=== PATIENT | male | born 1960 | race Caucasian/White ===

== ENCOUNTER 2017-08-17 10:11 | Inpatient (IN) | payer BC ==
[~2017-08-17] VITALS: Ht 175.3 cm; Wt 101.7 kg
[~2017-08-17 10:11] MED LIST: ARIXTRA SC; CIPRO HC OTIC S10 ML LEFT EAR; CITALOPRAM HBR20 MG PO; DIGOXIN125 MCG PO; Duragesic TD; EFFEXOR75 MG PO; FERROUS SULFAT325 MG PO; FOLIC ACID1 MG PO; FUROSEMIDE20 MG PO; LANTUS 10100 UNITS/ PO; LANTUS 10100 UNITS/ SC; LIPITOR40 MG PO; LISINOPRIL10 MG PO; LITE COAT ASPI325 M1 PO; LOSARTAN POTASS50 MG PO; LYRICA150 MG PO; Lipitor PO; METOPROLOL SUC100 MG PO; METOPROLOL SUCC25 MG PO; METOPROLOL SUCC50 MG PO; NAPROSYN500 MG PO; NORCO 7.5/321 TABLET PO; NOVOLOG PE100 UNITS/ SC; PRAVASTATIN SOD40 MG PO; PRILOSEC40 MG PO; PROTONIX40 MG PO; Percocet 5/325,Endoc PO; RANITIDINE HCL150 M1 PO; RANITIDINE HCL150 MG PO; SIMVASTATIN80 MG PO; SPIRONOLACTONE25 MG PO; TYLENOL EXTRA500 MG PO; celeXA PO
[2017-08-17 11:14] LABS: HEMATOCRIT 33.7 % (38.0-50.0); MCH 31.6 PG (29.0-34.0); MCHC 34.1 G/DL (30.0-36.0); MCV 92.6 FL (86-99); PLATELET COUNT 219 K/uL (156-360); RBC DIS.WIDTH-CV 13.8 % (11.8-14.6); RBC DIS.WIDTH-SD 46.5 % (39-53); WHITE BLOOD COUNT 9.5 K/uL (4.1-10.2)
[2017-08-17 11:17] LABS: HEMOGLOBIN 11.5 G/DL (12.5-16.6); RED BLOOD COUNT 3.64 M/uL (4.00-5.50)
[2017-08-17 11:26] LABS: CHLORIDE 102 mEq/L (99-109); POTASSIUM 5.4 mEq/L (3.7-5.4); SODIUM 139 mEq/L (136-147)
[2017-08-17 11:28] LABS: GLUCOSE 240 mg/dL (70-99)
[2017-08-17 11:31] LABS: GFR ESTIMATE (CALCULATED) 23 mL/min/ (58.99-99999)
[2017-08-17 11:32] LABS: UREA NITROGEN (BUN) 58 mg/dL (9-23)
[2017-08-17 11:38] LABS: TROP-I INTERPRETATION NEGATIVE; TROPONIN-I 0.02 ng/mL (0.0-0.30)
[2017-08-17 11:44] LABS: INTER. NORMALIZED RATIO 6.4
[2017-08-17 13:00] LABS: APPEARANCE CLEAR ((CLEAR)); BILIRUBIN NEGATIVE; BLOOD NEGATIVE; COLOR STRAW ((YELLOW)); GLUCOSE (STRIP) 50; KETONES NEGATIVE; LEUKOCYTES NEGATIVE; NITRITE NEGATIVE; PROTEIN (STRIP) 30; SPECIFIC GRAVITY 1.012 (1.000-1.030); UCUL ADDED? NO; UROBILINOGEN 0.2 MG/DL (0.2-1.0)
[2017-08-17] MEDS ORDERED: ROCALTROL0.5 MCG PO (13:24)
[2017-08-17] MEDS ORDERED: LIPITOR80 MG PO (13:24)
[2017-08-17] MEDS ORDERED: KLONOPIN0.5 M1 PO (13:24)
[2017-08-17] MEDS ORDERED: LEXAPRO10 MG PO (13:25)
[2017-08-17] MEDS ORDERED: ERGOCALCIF50000 UNIT PO (13:25)
[2017-08-17] MEDS ORDERED: FENOFIBRATE160 M1 PO (13:25)
[2017-08-17] MEDS ORDERED: ZESTRIL2.5 MG PO (13:26)
[2017-08-17] MEDS ORDERED: NEURONTIN600 MG PO (13:26)
[2017-08-17] MEDS ORDERED: COUMADIN5 MG PO (13:28)
[2017-08-17] MEDS ORDERED: AMBIEN10 MG PO (13:28)
[2017-08-17 14:54] VITALS: BP 149/82
[2017-08-18 00:37] VITALS: BP 127/63
[2017-08-18 04:33] VITALS: BP 121/61
[2017-08-18 06:46] LABS: MCH 30.7 PG (29.0-34.0); MCHC 33.3 G/DL (30.0-36.0); MCV 92.2 FL (86-99); PLATELET COUNT 229 K/uL (156-360); RBC DIS.WIDTH-CV 13.6 % (11.8-14.6); RBC DIS.WIDTH-SD 45.9 % (39-53); RED BLOOD COUNT 3.58 M/uL (4.00-5.50); WHITE BLOOD COUNT 9.2 K/uL (4.1-10.2)
[2017-08-18 06:47] LABS: INTER. NORMALIZED RATIO 5.5
[2017-08-18 07:30] VITALS: BP 125/79
[2017-08-18 08:25] LABS: CHLORIDE 105 MEQ/L (99-109); GFR ESTIMATE (CALCULATED) 28 mL/min/ (58.99-99999); POTASSIUM 4.4 MEQ/L (3.7-5.4); SODIUM 137 MEQ/L (136-147); UREA NITROGEN (BUN) 50 mg/dL (9-23)
[2017-08-18 08:29] LABS: CREATININE 2.5 MG/DL (0.6-1.3); GLUCOSE 117 mg/dL (70-99)
[2017-08-18 11:35] VITALS: BP 110/70
[2017-08-18 16:41] VITALS: BP 118/78
[2017-08-18 20:20] VITALS: BP 118/71
[2017-08-19 00:07] VITALS: BP 107/57
[2017-08-19 04:15] VITALS: BP 126/71
[2017-08-19 06:49] LABS: INTER. NORMALIZED RATIO 4.3
[2017-08-19 07:07] LABS: CHLORIDE 106 MEQ/L (99-109); CREATININE 2.4 MG/DL (0.6-1.3); GFR ESTIMATE (CALCULATED) 30 mL/min/ (58.99-99999); GLUCOSE 112 mg/dL (70-99); POTASSIUM 4.9 MEQ/L (3.7-5.4); SODIUM 139 MEQ/L (136-147); UREA NITROGEN (BUN) 45 mg/dL (9-23)
[2017-08-19 07:45] VITALS: BP 124/78
[2017-08-19] MEDS ORDERED: LASIX40 MG PO (11:24)
== END 2017-08-19 13:40 | disposition home or self-care (01) | DRG 683 ==
LOC: EME 10:11 → EDOF 11:57 → ENRESERV 12:04 → EDOF 12:07 → ENRESERV 13:00 → 5EAST 14:13 → ENPENDDIS 08-19 → 5EAST 08-19 13:40
PROVIDERS: Emergency Medicine; Family Medicine; Hospitalist
DX: N17.9 Acute kidney failure, unspecified (principal); I13.0 Hypertensive heart and chronic kidney disease with heart failure and stage 1 through stage 4 chronic kidney disease, or unspecified chronic kidney disease; E66.01 Morbid (severe) obesity due to excess calories; I25.10 Atherosclerotic heart disease of native coronary artery without angina pectoris; N18.3 Chronic kidney disease, stage 3 (moderate); I25.5 Ischemic cardiomyopathy; E11.22 Type 2 diabetes mellitus with diabetic chronic kidney disease; R79.1 Abnormal coagulation profile; I48.91 Unspecified atrial fibrillation; I50.9 Heart failure, unspecified; E86.0 Dehydration; Z86.73 Personal history of transient ischemic attack (TIA), and cerebral infarction without residual deficits; Z95.810 Presence of automatic (implantable) cardiac defibrillator; Z79.01 Long term (current) use of anticoagulants; Z95.1 Presence of aortocoronary bypass graft; Z68.33 Body mass index [BMI] 33.0-33.9, adult; Z79.4 Long term (current) use of insulin; Z82.49 Family history of ischemic heart disease and other diseases of the circulatory system
CPT/HCPCS: 76770; 80048; 81003; 82948; 83605; 84484; 85027; 85610; 86850; 86900; 86901; 99281; 99285; J1815; J7030

== ENCOUNTER 2017-10-01 22:45 | Emergency (ER) | payer BC ==
[~2017-10-01] VITALS: Ht 175.3 cm; Wt 102.7 kg
[~2017-10-01 22:45] MED LIST changes: +AMBIEN10 MG PO; +COUMADIN5 MG PO; +ERGOCALCIF50000 UNIT PO; +FENOFIBRATE160 M1 PO; +KLONOPIN0.5 M1 PO; +LASIX40 MG PO; +LEXAPRO10 MG PO; +LIPITOR80 MG PO; +NEURONTIN600 MG PO; +ROCALTROL0.5 MCG PO; +ZESTRIL2.5 MG PO
[2017-10-02] MEDS ORDERED: PREDNISONE50 MG PO (01:33)
[2017-10-02 02:11] VITALS: BP 137/72
== END 2017-10-02 02:14 | disposition home or self-care (01) ==
LOC: EME 22:45
DX: L30.9 Dermatitis, unspecified (principal); T50.8X5A Adverse effect of diagnostic agents, initial encounter; E11.22 Type 2 diabetes mellitus with diabetic chronic kidney disease; Z79.4 Long term (current) use of insulin; I12.9 Hypertensive chronic kidney disease with stage 1 through stage 4 chronic kidney disease, or unspecified chronic kidney disease; N18.9 Chronic kidney disease, unspecified; K21.9 Gastro-esophageal reflux disease without esophagitis; I25.2 Old myocardial infarction; F32.9 Major depressive disorder, single episode, unspecified; Z79.01 Long term (current) use of anticoagulants; Z86.73 Personal history of transient ischemic attack (TIA), and cerebral infarction without residual deficits; Z95.810 Presence of automatic (implantable) cardiac defibrillator; Z86.74 Personal history of sudden cardiac arrest; Z88.8 Allergy status to other drugs, medicaments and biological substances
CPT/HCPCS: 99281; 99284; J1200; J2930; S0028